=== PATIENT | male | born 1990 | race Caucasian/White ===

== ENCOUNTER 2017-01-30 12:38 | Emergency (ER) | payer MEDICAID, OTHER ==
[2017-01-30 12:38] VITALS: BMI 20.5
[2017-01-30 12:54] VITALS: RESP 16
--- NOTE | 2017-01-30 13:47 | RAD ---
HISTORY: CP, COMPARISON: None available. TECHNIQUE: Chest, one view. FINDINGS: Left lateral chest wall and portion of the left costophrenic angle excluded from view. LUNGS: No focal consolidation. Please note that chest x-ray has limited sensitivity for the detection of pulmonary masses. PLEURA: No significant pleural effusion identified. No definite pneumothorax . CARDIOVASCULAR: The cardiomediastinal silhouette appears within normal limits of size. OSSEOUS STRUCTURES: No acute osseous abnormality identified. VISUALIZED UPPER ABDOMEN: Unremarkable. OTHER FINDINGS: None. IMPRESSION: No focal consolidation, significant pleural effusion, or definite pneumothorax identified.
[2017-01-30 13:53] LABS: BASO % 0.3 % (0.0-2.0); EOS # 0.1 K/uL (0.0-0.7); HEMATOCRIT 42.4 % (35.0-51.0); LYMPH # 1.2 K/uL (1.0-4.3); LYMPH % 14.5 % (20.0-40.0); MEAN CELL VOLUME 89.4 fL (80.0-94.0); MEAN CORPUSCULAR HEMOGLOBIN 29.7 pg (27.0-31.0); MEAN CORPUSCULAR HGB CONC 33.2 g/dL (33.0-37.0); MEAN PLATELET VOLUME 9.6 fL (7.2-11.7); MONO # 0.4 K/uL (0.0-0.8); MONO % 5.5 % (0.0-10.0); RED CELL DISTRIBUTION WIDTH 13.5 % (11.5-14.5); WHITE BLOOD COUNT 8.1 K/uL (4.8-10.8)
--- NOTE | 2017-01-30 14:04 | C.PDOC ---
History Of Present Illness 26 y/o male presents to the ED with complains of chest discomfort which onset yesterday. Pain worsened after helping someone move furniture with associated SOB. Pt denies tobacco or alcohol use. Denies vomiting, diarrhea, abdominal pain , fever, palpitations or any other complaints. Time Seen by Provider: 01/30/17 13:00 Chief Complaint (Nursing): Chest Pain History Per: Patient History/Exam Limitations: no limitations Onset/Duration Of Symptoms: Hrs Current Symptoms Are (Timing): Worse Severity: Moderate Quality: "Pain" Alleviating Factors: None Recent travel outside of the [place]: No Past Medical History Reviewed: Historical Data, Nursing Documentation, Vital Signs Vital Signs: Last Vital Signs Temp 98.4 F 01/30/17 16:39 Pulse 74 01/30/17 16:39 Resp 16 01/30/17 16:39 BP 115/72 01/30/17 16:39 Pulse Ox 99 01/30/17 16:39 - [facility] Procedures LARYGNOSCOPY AND OTH TRACHEOSCOPY (11/09/13) Family History: States: Unknown Family Hx - Social History Hx Tobacco Use: No Hx Alcohol Use: No Hx Substance Use: No - Immunization History Hx Tetanus Toxoid Vaccination: No Hx Influenza Vaccination: No Hx Pneumococcal Vaccination: No Review Of Systems Except As Marked, All Systems Reviewed And Found Negative. Constitutional: Negative for: Fever Cardiovascular: Positive for: Chest Pain. Negative for: Palpitations Respiratory: Positive for: Shortness of Breath Gastrointestinal: Negative for: Nausea, Vomiting, Abdominal Pain Physical Exam - Physical Exam Appears: Non-toxic, No Acute Distress Skin: Warm, Dry, No Rash Head: Atraumatic, Normacephalic Neck: Normal ROM, Supple Chest: Symmetrical, Tenderness (mild anterior chest wall) Cardiovascular: Rhythm Regular, No Murmur Respiratory: Normal Breath Sounds, No Accessory Muscle Use, No Rales, No Rhonchi , No Wheezing Gastrointestinal/Abdominal: Normal Exam, Soft, No Tenderness Extremity: Bilateral: Atraumatic Neurological/Psych: Oriented x3, Normal Speech ED Course And Treatment - Laboratory Results Result Diagrams: 01/30/17 13:47 01/30/17 13:47 ECG: Interpreted By Me, Viewed By Me ECG Rhythm: Sinus Rhythm ECG Interpretation: No Acute Changes Rate From EC (BPM) O2 Sat by Pulse Oximetry: 96 (room air) Pulse Ox Interpretation: Normal - Other Rad CXR X-Ray: Viewed By Me, Read By Radiologist Interpretation: Accession No. : [id number]. Patient Name / ID : LICHA BADILLO / [id number]. Exam Date : 01/30/2017 13:27:56 ( Approved ). Study Comment : Sex / Age : M / 26Y. Creator : RENATO ENG. Dictator : Vanessa Mcgarry MD. Telephone Technician : Allied Health Professional : Vanessa Mcgarry MD. Approver2 : Report Date : 01/30/2017 13:33:24. My Comment : . HISTORY: CP,. COMPARISON: None available. TECHNIQUE: Chest, one view. FINDINGS: Left lateral chest wall and portion of the left costophrenic angle excluded from view. LUNGS: No focal consolidation. Please note that chest x-ray has limited sensitivity for the detection of pulmonary masses. PLEURA: No significant pleural effusion identified. No definite pneumothorax . CARDIOVASCULAR: The cardiomediastinal silhouette appears within normal limits of size. OSSEOUS STRUCTURES: No acute osseous abnormality identified. VISUALIZED UPPER ABDOMEN: Unremarkable. OTHER FINDINGS: None. IMPRESSION: No focal consolidation, significant pleural effusion, or definite pneumothorax identified. Progress Note: Plan: EKG, labs, CXR, UA, IV fluids, Toradol IV. On re-exam patient feels better and is stable to be d/c home. Disposition - Disposition Referrals: [facility] [Outside] [facility] [Outside] Disposition: HOME/ ROUTINE Disposition Time: 15:57 Condition: IMPROVED Additional Instructions: Follow up in Clinic within 1-2 days. Return to ED if feel worse. 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 - Scribe Statement The provider has reviewed the documentation as recorded by the Scribe Jitendra Wilson All medical record entries made by the Felicianoibe were at my direction and personally dictated by me. I have reviewed the chart and agree that the record accurately reflects my personal performance of the history, physical exam, medical decision making, and the department course for this patient. I have also personally directed, reviewed, and agree with the discharge instructions and disposition.
[2017-01-30 14:07] LABS: CHLORIDE 103 mmol/L (98-107)
[2017-01-30 14:08] LABS: POTASSIUM 3.7 mmol/L (3.6-5.2); SODIUM 142 mmol/L (132-148)
[2017-01-30 14:09] LABS: PARTIAL THROMBOPLASTIN TIME 31 SECONDS (21-34)
[2017-01-30 14:10] LABS: ALB/GLOB RATIO 1.6 (1.0-2.1); ALKALINE PHOSPHATASE 58 U/L (38-126); ALT/SGPT 29 U/L (21-72); AST/SGOT 27 U/L (17-59); BILIRUBIN,TOTAL 0.7 mg/dL (0.2-1.3); BLOOD UREA NITROGEN 6 mg/dL (9-20); CARBON DIOXIDE 25 mmol/L (22-30); GFR AFRICAN-AMERICAN > 60; GLUCOSE,RANDOM 122 mg/dL (75-110); TOTAL PROTEIN 7.3 g/dL (6.3-8.3)
[2017-01-30 14:11] LABS: CALCIUM 8.9 mg/dl (8.6-10.4)
[2017-01-30 14:38] LABS: URINE BILIRUBIN NEGATIVE (NEGATIVE); URINE BLOOD NEGATIVE (NEGATIVE); URINE COLOR Colorless (YELLOW); URINE GLUCOSE (UA) NORMAL (Normal); URINE KETONE NEGATIVE (NEGATIVE); URINE LEUKOCYTE ESTERASE NEG Leu/uL (Negative); URINE PROTEIN NEGATIVE (NEGATIVE); URINE UROBILINOGEN NORMAL mg/dL (0.2-1.0); WBC URINE < 1 /hpf (0-5)
[2017-01-30 15:40] VITALS: TEMP 98.4
[2017-01-30 16:40] VITALS: BP 115/72; PULSE 74
[2017-01-30 17:33] VITALS: O2SAT 96
--- NOTE | 2017-02-01 11:55 | CARD ---
APPROVED REPORT EKG Measurement Heart [id number] <Conclusion> Normal sinus rhythm Minimal voltage criteria for LVH, may be normal variant Borderline ECG
== END 2017-01-30 16:40 | disposition home or self-care (01) ==
LOC: C.ER 12:38
DX: R07.89 Other chest pain (principal)
CPT/HCPCS: 71010; 80053; 80324; 80345; 80346; 80349; 80353; 80358; 80361; 81001; 82550; 82553; 83992; 84484; 85025; 85378; 85610; 85730; 93005; 96374; 99284; J1885

== ENCOUNTER 2018-06-08 00:12 | Emergency (ER) | payer MEDICAID, OTHER ==
[2018-06-08 00:12] VITALS: BMI 20.5
[2018-06-08] MEDS ORDERED: Silver Sulfadiazine 1% Cream (20 gm) TOP STA (00:49)
[2018-06-08] MEDS ORDERED: Silver Sulfadiazine 1% Cream (20 gm) ONE (00:59)
--- NOTE | 2018-06-08 01:19 | C.PDOC ---
History Of Present Illness 28 year old male presents to the ER after sustaining a burn to the left foot. 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 Denies fever, weakness, or numbness. Time Seen by Provider: 06/08/18 00:29 Chief Complaint (Nursing): Burn History Per: Patient History/Exam Limitations: no limitations Injury Occurred (Timing): Just Before Arrival Type Of Burn (Context): Hot Liquid Burn Descrption: 2nd: Foot, Left: Foot Smoke Inhalation: None Recent travel outside of the [place]: No Past Medical History Reviewed: Historical Data, Nursing Documentation, Vital Signs Vital Signs: Last Vital Signs Temp 98.4 F 06/08/18 02:23 Pulse 90 06/08/18 02:23 Resp 18 06/08/18 02:23 BP 134/86 06/08/18 02:23 Pulse Ox 99 06/08/18 02:23 - [facility] Procedures LARYGNOSCOPY AND OTH TRACHEOSCOPY (11/09/13) Family History: States: Unknown Family Hx - Social History Hx Tobacco Use: No Hx Alcohol Use: Yes Hx Substance Use: Yes - Immunization History Hx Tetanus Toxoid Vaccination: No Hx Influenza Vaccination: No Hx Pneumococcal Vaccination: No Review Of Systems Constitutional: Negative for: Fever, Chills Musculoskeletal: Positive for: Foot Pain Skin: Positive for: Other (Burn) Neurological: Negative for: Weakness, Numbness Physical Exam - Physical Exam Appears: Non-toxic Skin: Warm, Dry Head: Atraumatic, Normacephalic Eye(s): bilateral: Normal Inspection Extremity: Capillary Refill (<2 seconds), Other (Three large 4cm blisters to dorsal aspect of distal left foot) Pulses: Left Dorsalis Pedis: Normal, Right Dorsalis Pedis: Normal Neurological/Psych: Oriented x3, Normal Speech, Normal Motor, Normal Sensation ED Course And Treatment O2 Sat by Pulse Oximetry: 97 (Room air) Pulse Ox Interpretation: Normal Medical Decision Making Medical Decision Making: Motrin administered, silvadene applied. Wound was dressed, patient given proper wound care instructions and advised to follow up with PMD. Disposition - Disposition Referrals: [facility] [Outside] Disposition: HOME/ ROUTINE Disposition Time: 01:24 Condition: STABLE Additional Instructions: Clean the wound twice a day with soap and water. Then apply the bacitracin. Return if worsened. 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 - Scribe Statement The provider has reviewed the documentation as recorded by the Scribe Fabrizio Horn All medical record entries made by the Felicianoiblayla were at my direction and personally dictated by me. I have reviewed the chart and agree that the record accurately reflects my personal performance of the history, physical exam, medical decision making, and the department course for this patient. I have also personally directed, reviewed, and agree with the discharge instructions and disposition.
[2018-06-08 02:24] VITALS: BP 134/86; PULSE 90; RESP 18; TEMP 98.4
[2018-06-08 03:43] VITALS: O2SAT 97
== END 2018-06-08 02:23 | disposition home or self-care (01) ==
LOC: C.ER 00:12
DX: T25.222A Burn of second degree of left foot, initial encounter (principal); X12.XXXA Contact with other hot fluids, initial encounter; Y92.511 Restaurant or cafe as the place of occurrence of the external cause; Y99.0 Civilian activity done for income or pay